=== PATIENT | female | born 1930 | race Caucasian/White ===

== ENCOUNTER 2018-08-10 00:29 | Emergency (ER) | payer OTHER ==
[~2018-08-10] VITALS: Ht 157.5 cm; Wt 45.8 kg
[2018-08-10] MEDS ORDERED: VITAMIN D1000 UNI1 PO (00:53)
[2018-08-10] MEDS ORDERED: CALCIUM 500 +1 EAC6 PO (00:54)
[2018-08-10] MEDS ORDERED: LOPRESSOR25 PO (00:54)
[2018-08-10] MEDS ORDERED: ASPIR 8181 MG PO (00:54)
[2018-08-10] MEDS ORDERED: BACTRIM DS TAB1 EAC1 PO (00:55)
[2018-08-10] MEDS ORDERED: OXYBUTYNIN 5 MG5 M2 PO (00:56)
[2018-08-10] MEDS ORDERED: TYLENOL EXTRA500 MG PO (00:56)
[2018-08-10] MEDS ORDERED: METHOCARBAMOL500 M1 PO (02:43)
[2018-08-10 05:00] VITALS: BP 126/69
== END 2018-08-10 05:24 | disposition home or self-care (01) ==
LOC: ER 00:29
DX: R10.31 Right lower quadrant pain (principal)